=== PATIENT | female | born 2000 | race Caucasian/White ===

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

== ENCOUNTER → 2020-06-22 | Outpatient (CLI) | payer OTHER | END | disposition home or self-care (01) | LOC: COVID19 13:39 | PROVIDERS: ATTEND Family Medicine | DX: Z20.828 Contact with and (suspected) exposure to other viral communicable diseases (principal) ==

== ENCOUNTER → 2020-08-26 | Outpatient (CLI) | payer OTHER | END | disposition home or self-care (01) | LOC: COVID19 15:03 | PROVIDERS: ATTEND Family Medicine | DX: R51.9 Headache, unspecified (principal); Z20.822 Contact with and (suspected) exposure to COVID-19 ==

== ENCOUNTER → 2020-08-28 | Outpatient (CLI) | payer OTHER ==
[2020-08-28 16:14] LABS: BASO # 0.1 10*3/uL (0.0-0.1); BASO % 0.9 % (0.0-1.0); EOS # 0.1 10*3/uL (0.0-0.4); EOS % 1.3 % (1.0-4.0); HEMATOCRIT 41.3 % (37.0-47.0); LYMPH # 2.3 10*3/uL (1.3-4.4); LYMPH % 34.2 % (27.0-41.0); MEAN CELL VOLUME 88.1 fl (81.0-99.0); MEAN CORPUSCULAR HGB CONC 32.9 g/dl (33.0-37.0); MEAN PLATELET VOLUME 9.9 fl (9.6-12.3); MONO # 0.6 10*3/uL (0.1-1.0); MONO % 8.7 % (3.0-9.0); NEUT # 3.7 10*3/uL (2.3-7.9); NEUT % 54.5 % (47.0-73.0); PLATELET COUNT AUTOMATED 407 10*3/uL (130-400); RED BLOOD COUNT 4.69 10*6/uL (4.10-5.10); RED CELL DISTRI WIDTH 12.3 % (0-14.5); WHITE BLOOD COUNT 6.8 10*3/uL (4.8-10.8)
[2020-08-28 16:32] LABS: ALBUMIN 4.1 gm/dl (3.1-4.5); ALKALINE PHOSPHATASE 87 U/L (45-117); BUN 11 mg/dl (7-24); CHLORIDE 107 mmol/L (98-107); CREATININE 0.72 mg/dL (0.55-1.02); POTASSIUM 3.9 mmol/L (3.5-5.1); SGOT/AST 10 IU/L (3-35); SGPT/ALT 21 U/L (12-78); SODIUM 140 mmol/L (136-145); TOTAL PROTEIN 8.1 gm/dL (6.4-8.2)
[2020-08-28 16:40] LABS: FREE T4 0.91 ng/dl (0.76-1.46)
== END | disposition home or self-care (01) ==
LOC: LAB 15:40
PROVIDERS: ATTEND Family Medicine
DX: R11.2 Nausea with vomiting, unspecified (principal)

== ENCOUNTER 2023-01-28 20:39 | Emergency (ER) | payer BC ==
[~2023-01-28] VITALS: Ht 152.4 cm; Wt 95.7 kg
[2023-01-28 21:00] VITALS: BP 123/41
[2023-01-28] MEDS ORDERED: CYCLOBENZAPRINE5 M3 PO (22:42)
== END 2023-01-28 23:00 | disposition home or self-care (01) ==
LOC: ED 20:39
DX: S39.012A Strain of muscle, fascia and tendon of lower back, initial encounter (principal); Z98.890 Other specified postprocedural states; X50.0XXA Overexertion from strenuous movement or load, initial encounter; Y93.89 Activity, other specified; Y92.239 Unspecified place in hospital as the place of occurrence of the external cause; Y99.8 Other external cause status

== ENCOUNTER → 2023-03-14 | Outpatient (CLI) | payer BC ==
[~2023-03-14] MED LIST changes: +CYCLOBENZAPRINE5 M3 PO
== END | disposition home or self-care (01) ==
LOC: US 00:22
PROVIDERS: ATTEND Nurse Practitioner Women's Health
DX: R18.8 Other ascites (principal); R10.32 Left lower quadrant pain

== ENCOUNTER 2023-08-22 19:45 | Emergency (ER) | payer BC ==
[~2023-08-22] VITALS: Ht 172.7 cm; Wt 81.6 kg
[2023-08-22 20:01] VITALS: BP 129/76
[2023-08-22] MEDS ORDERED: METHOCARBAMOL750 M1 PO (20:10)
[2023-08-22] MEDS ORDERED: Ketorolac Tromethamine 60 MG/2 ML VIAL IM ONE (20:10)
[2023-08-22] MEDS ORDERED: METHOCARBAMOL 500 MG TAB PO ONE (20:10)
[2023-08-22] MEDS ORDERED: NAPROSYN500 MG PO (20:10)
== END 2023-08-22 20:32 | disposition home or self-care (01) ==
LOC: ED 19:45
DX: S39.012A Strain of muscle, fascia and tendon of lower back, initial encounter (principal); Z98.890 Other specified postprocedural states; X50.0XXA Overexertion from strenuous movement or load, initial encounter; Y93.89 Activity, other specified; Y92.009 Unspecified place in unspecified non-institutional (private) residence as the place of occurrence of the external cause; Y99.8 Other external cause status

== ENCOUNTER → 2023-12-25 | Day surgery (SDC) | payer BC ==
[~2023-12-25] VITALS: Ht 167.6 cm; Wt 96.6 kg
[~2023-12-25] MED LIST changes: +EPINEPHrine/Lidocaine Hydroc 20 ML VIAL ONE; +Lactated Ringer's Solution 1,000 ML IV ONE; +METHOCARBAMOL750 M1 PO; +Midazolam Hydrochloride 2 MG/2 ML VIAL IV ONE; +NAPROSYN500 MG PO; +PROPOFOL 200 MG/20 ML VIAL IV ONE; +ceFAZolin sodium/sodium chlor 20 ML IV ONE; +fentaNYL CITRATE 100 MCG/2 ML VIAL IV ONE
[2023-12-25 12:30] VITALS: BP 117/59
[2023-12-25 16:04] VITALS: BP 99/46
[2023-12-25 16:19] VITALS: BP 101/46
[2023-12-25 16:34] VITALS: BP 103/55
== END | disposition home or self-care (01) ==
LOC: SDC 12-21 08:45
PROVIDERS: ATTEND Surgery
DX: D23.4 Other benign neoplasm of skin of scalp and neck (principal); L72.12 Trichodermal cyst; L72.8 Other follicular cysts of the skin and subcutaneous tissue; Z79.899 Other long term (current) drug therapy; Z83.3 Family history of diabetes mellitus; Z80.3 Family history of malignant neoplasm of breast

== ENCOUNTER → 2024-09-03 | Outpatient (CLI) | payer BC ==
[~2024-09-03] MED LIST changes: -EPINEPHrine/Lidocaine Hydroc 20 ML VIAL ONE; -Lactated Ringer's Solution 1,000 ML IV ONE; -Midazolam Hydrochloride 2 MG/2 ML VIAL IV ONE; -PROPOFOL 200 MG/20 ML VIAL IV ONE; -ceFAZolin sodium/sodium chlor 20 ML IV ONE; -fentaNYL CITRATE 100 MCG/2 ML VIAL IV ONE
== END | disposition home or self-care (01) ==
LOC: CARD 11:00
PROVIDERS: ATTEND Internal Medicine
DX: I47.10 Supraventricular tachycardia, unspecified (principal); R55 Syncope and collapse

== ENCOUNTER 2024-10-25 21:29 | Emergency (ER) | payer BC ==
[~2024-10-25] VITALS: Ht 170.1 cm; Wt 91.2 kg
[2024-10-25 21:50] VITALS: BP 130/88
== END 2024-10-25 22:43 | disposition home or self-care (01) ==
LOC: ED 21:29
DX: O20.9 Hemorrhage in early pregnancy, unspecified (principal); R10.2 Pelvic and perineal pain; Z3A.01 Less than 8 weeks gestation of pregnancy

== ENCOUNTER 2025-04-29 16:32 | Emergency (ER) | payer BC ==
[~2025-04-29] VITALS: Ht 167.6 cm; Wt 96.2 kg
[2025-04-29 16:43] VITALS: BP 120/77
[2025-04-29] MEDS ORDERED: Water, Sterile 10 ML VIAL ONE (17:21)
[2025-04-29 17:24] LABS: BILIRUBIN Negative (Negative); BLOOD 2+ (Negative); CLARITY Clear (Clear); COLOR Yellow (Yellow); KETONE Negative (Negative); LEUKO ESTERASE 1+ (Negative); NITRITE Negative (Negative); PH 6.0 (4.5-8.0); SPECIFIC GRAVITY 1.010 (1.001-1.030); UROBILINOGEN 1.0 E.U./dl (0.0-1.0)
[2025-04-29 17:35] LABS: BACTERIA 2+; EPITHELIAL CELLS 16-20; WBC 41-50 wbc/hpf (0-5)
[2025-04-29] MEDS ORDERED: MACROBID100 M1 PO (17:59)
[2025-04-29] MEDS ORDERED: Nitrofurantoin Monohydrate/N 100 MG CAP PO ONE (18:00)
[2025-04-29] MEDS ORDERED: NAPROSYN500 MG PO (18:00)
== END 2025-04-29 18:19 | disposition home or self-care (01) ==
LOC: ED 16:32
PROVIDERS: Nurse Practitioner Family
DX: M54.50 Low back pain, unspecified (principal); N30.01 Acute cystitis with hematuria; X50.1XXA Overexertion from prolonged static or awkward postures, initial encounter; Y93.89 Activity, other specified; Y92.89 Other specified places as the place of occurrence of the external cause; Y99.8 Other external cause status